=== PATIENT | male | born 2000 | race Hispanic/Latino ===

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

== ENCOUNTER 2023-02-10 07:41 | Emergency (ER) | payer MEDICAID, OTHER ==
[~2023-02-10] VITALS: Ht 165.1 cm; Wt 86.2 kg
[2023-02-10 07:44] VITALS: BP 154/74; PULSE 81; RESP 18
== END 2023-02-10 08:31 ==
LOC: EDH 07:41
DX: R68.89 Other general symptoms and signs (principal); Z53.21 Procedure and treatment not carried out due to patient leaving prior to being seen by health care provider
CPT/HCPCS: 99281